=== PATIENT | male | born 1980 | race Caucasian/White ===

== ENCOUNTER 2016-06-26 16:01 | Emergency (ER) | payer OTHER ==
[~2016-06-26] VITALS: Ht 175.3 cm; Wt 95.3 kg
[2016-06-26 16:35] LABS: URINE BILIRUBIN NEGATIVE (Negative); URINE BLOOD 3+ (Negative); URINE COLOR YELLOW; URINE GLUCOSE-RANDOM* NEGATIVE (Negative); URINE KETONES NEGATIVE (Negative); URINE LEUKOCYTES-REFLEX NEGATIVE (Negative); URINE PROTEIN (DIPSTICK) 1+ (Negative)
[2016-06-26 16:40] LABS: CASTS None Seen /LPF (None Seen); CRYSTALS None Seen /LPF (None Seen); SQUAMOUS None Seen /LPF (0-3); URINE RBC >20 Many /HPF (0-2); URINE WBC-REFLEX None Seen /HPF (0-5)
[2016-06-26 17:00] LABS: ABSOLUTE NEUTROPHILS 7.9 thou/uL (1.4-8.2); BASOPHILS 0.6 % (0.0-2.0); EOSINOPHILS 0.2 % (0.0-3.0); HEMATOCRIT 44.3 % (42.0-52.0); HEMOGLOBIN 15.2 gm/dL (14.0-18.0); MCH 30.3 pg (26.0-34.0); MCHC 34.3 g/dL (28.0-37.0); MCV 88.3 fL (80.0-100.0); MONOCYTES 4.8 % (1.0-8.0); PLATELET COUNT 224 thou/uL (150-400); POLYS 76.4 % (36.0-66.0); RBC 5.01 mil/uL (4.50-6.00); WBC 10.4 thou/uL (4.0-11.0)
[2016-06-26 17:03] LABS: MANUAL DIFF NO
[2016-06-26 17:09] LABS: CALCIUM 8.9 mg/dL (8.5-10.1); CREATININE 0.9 mg/dL (0.7-1.3); POTASSIUM 3.7 mmol/L (3.5-5.1)
[2016-06-26] MEDS ORDERED: FLOMAX0.4 MG PO (17:34)
[2016-06-26] MEDS ORDERED: MOBIC15 MG PO (17:34)
[2016-06-26] MEDS ORDERED: ULTRAM 50MG TAB50 MG PO (17:54)
[2016-06-26 18:10] VITALS: BP 138/88
== END 2016-06-26 18:10 | disposition home or self-care (01) ==
LOC: ER 16:01
PROVIDERS: Physician Assistant
DX: N20.0 Calculus of kidney (principal); Z87.442 Personal history of urinary calculi; R31.9 Hematuria, unspecified